=== PATIENT | female | born 1970 | race Caucasian/White ===

== ENCOUNTER 2018-12-29 17:58 | Emergency (ER) | payer BC ==
[~2018-12-29] VITALS: Ht 170.2 cm; Wt 56.7 kg
== END 2018-12-29 19:07 | disposition home or self-care (01) ==
LOC: ED 17:58
DX: S05.02XA Injury of conjunctiva and corneal abrasion without foreign body, left eye, initial encounter (principal); Z90.710 Acquired absence of both cervix and uterus; X58.XXXA Exposure to other specified factors, initial encounter
CPT/HCPCS: 99283